=== PATIENT | male | born 1990 | race African-American/Black ===

== ENCOUNTER 2023-07-13 13:39 | Emergency (ER) | payer SELFPAY ==
[2023-07-13 13:46] VITALS: BP 122/80; PULSE 54; RESP 16; TEMP 36.9; O2SAT 98; BMI 25.6
--- NOTE | 2023-07-13 14:00 | ECG_ITS ---
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
--- NOTE | 2023-07-13 14:03 | PC.NURSE ---
EKG complete and given to the DR for review. Pt denies any symptoms at this time. Pt alert and appropriate and explained ER is full at this time. Pt verbalized understanding.
--- NOTE | 2023-07-13 14:32 | PC.NURSE ---
no distress observed
[2023-07-13 14:33] LABS: Basophils Absolute Auto 0.1 10^3/uL (0.0-0.1); Basophils Percent Auto 0.9 % (0.2-2.0); Eosinophils Absolute Auto 0.2 10^3/uL (0.0-0.7); Eosinophils Percent Auto 2.3 % (0.9-7.0); Hematocrit 41.3 % (42.0-54.0); Hemoglobin 13.8 g/dL (14.0-18.0); Immature Granulocytes Abs Auto 0.01 10^3/uL (0.00-0.03); Immature Granulocytes Pct Auto 0.1 % (0.0-0.5); Lymphocytes Absolute Auto 2.4 10^3/uL (1.2-3.8); Lymphocytes Percent Auto 34.4 % (20.5-60.0); Mean Corpuscular HGB Conc 33.4 g/dL (29.9-35.2); Mean Corpuscular Hemoglobin 31.8 pg (25.9-34.0); Mean Corpuscular Volume 95.2 fL (80.0-94.0); Mean Platelet Volume 8.6 fL (9.5-13.5); Monocytes Absolute Auto 0.7 10^3/uL (0.3-0.8); Monocytes Percent Auto 10.1 % (1.7-12.0); Neutrophils Absolute Auto 3.6 10^3/uL (1.4-6.5); Neutrophils Percent Auto 52.2 % (43.0-75.0); Platelet Count 232 10^3/uL (150-450); Red Blood Count 4.34 10^6/uL (4.70-6.10); Red Cell Distribution Width 12.7 % (11.0-15.0); White Blood Count 6.9 10^3/uL (4.0-11.0)
[2023-07-13 14:48] LABS: Alanine Aminotransferase 24 U/L (16-63); Albumin Globulin Ratio 1.3; Albumin Level 4.3 g/dL (3.4-5.0); Alkaline Phosphatase 44 U/L (46-116); Anion Gap 5.8; Aspartate Amino Transferase 21 U/L (15-37); BUN Creatinine Ratio 13.1; Bilirubin Total 0.8 mg/dL (0.2-1.0); Calcium 8.7 mg/dL (8.5-10.1); Carbon Dioxide 32.9 mmol/L (21.0-32.0); Chloride 105 mmol/L (98-107); Estimated GFR (African America >60 (>=60); Estimated GFR (Non-African Ame >60 (>=60); Globulin 3.3 g/dL; Glucose 64 mg/dL (74-106); Potassium 3.7 mmol/L (3.5-5.1); Sodium 140 mmol/L (136-145); Total Protein 7.6 g/dL (6.4-8.2); Troponin I High Sensitivity 5.5 pg/mL (4.0-76.1)
[2023-07-13 14:49] LABS: INR 0.95; Prothrombin Time 10.1 sec (9.0-11.6)
--- NOTE | 2023-07-13 14:52 | ED.CHESTPAI1 ---
HPI - Chest Pain General Chief Complaint: Chest Pain Stated Complaint: SHORTNESS OF BREATH/ CHEST PAIN Time Seen by Provider: 07/13/23 13:54 Source: patient Mode of arrival: walk-in History of Present Illness HPI narrative: patient is a 33-year-old male who presents to the emergency department with concern for chest pain that started last night. Patient states he was watching television with his when he developed sharp pain in his left chest just underneath the left pectoral muscle. He has not had any injuries or traumas to the area. He quit smoking cigarettes seven years ago. He has not had any fevers, chills, cough, congestion. He did not take any medications prior to arrival. He has not had any swelling in his legs. He has no other medical history. He denies any immediate family members with myocardial infarction under the age of fifty. He states that he had improvement of the pain after ten minutes, and after one hour it was completely gone. He states today he is having an occasional twinge in the left chest but no pain, nausea or vomiting. He states last night when the pain was significant, it felt like a muscle cramp. He denies any movements that may have precipitated a muscle cramp or muscle pull. He presents to the Emergency Room today because his was concerned that he may have had an myocardial infarction. Risk Factors Coronary artery disease risk factors: none Related Data Allergies Allergy/AdvReac Type Severity Reaction Status Date / Time No Known Drug Allergies Allergy Verified 07/13/23 13:54 Review of Systems ROS Constitutional Denies: fever or chills Ears, nose, mouth, and throat Denies: throat pain Cardiovascular Reports: chest pain; Denies: palpitations Respiratory Denies: shortness of breath or cough Gastrointestinal Denies: nausea or vomiting Musculoskeletal Denies: back pain Integumentary/Breast Denies: rash Neurological Denies: headache Hematologic/Lymphatic Denies: easy bruising Exam Narrative Exam Narrative: Gen.: Awake, alert, in no distress Head: Normocephalic, atraumatic ENT: Moist mucous membranes Respiratory: No respiratory distress, lungs clear bilaterally; no tenderness of the chest wall, no rashes noted of the chest wall Cardio: Regular rate and rhythm Gastrointestinal: Abdomen is soft, nondistended and nontender to palpation Extremities: Moves extremities equally, no pedal edema Psych: Normal mood and affect Neuro: No focal neuro deficit Skin: Warm, dry, intact Constitutional Vital Signs, click to edit/add: Last Vital Signs Temp 98.4 F 07/13/23 13:46 Pulse 54 L 07/13/23 13:46 Resp 16 07/13/23 13:46 BP 122/80 07/13/23 13:46 Pulse Ox 98 07/13/23 13:46 O2 Del Method Room Air 07/13/23 14:32 Course Vital Signs Vital signs: Vital Signs Temperature 98.4 F 07/13/23 13:46 Pulse Rate 54 L 07/13/23 13:46 Respiratory Rate 16 07/13/23 13:46 Blood Pressure 122/80 07/13/23 13:46 Pulse Oximetry 98 07/13/23 13:46 Oxygen Delivery Method Room Air 07/13/23 13:46 Temperature 98.4 F 07/13/23 13:46 Pulse Rate 54 L 07/13/23 13:46 Respiratory Rate 16 07/13/23 13:46 Blood Pressure 122/80 07/13/23 13:46 Pulse Oximetry 98 07/13/23 13:46 Oxygen Delivery Method Room Air 07/13/23 14:32 MDM - Chest Pain MDM Narrative Medical decision making narrative: patient was given aspirin as a precaution due to his complaints, he has no significant risk factors. Labs including troponin and d-dimer are unremarkable and chest x-ray shows no evidence of acute cardiopulmonary changes. Patient noted to have early repolarization on EKG with no acute changes. He is encouraged follow-up with PCP and return to the Emergency Room if symptoms change or worsen Medical Records Data Attestation: I reviewed the patient's medical records. Lab Data Attestation: I reviewed the patient's lab results. Labs: Lab Results 07/13/23 Range/Units 14:23 WBC 6.9 (4.0-11.0) 10^3/uL RBC 4.34 L (4.70-6.10) 10^6/uL Hgb 13.8 L (14.0-18.0) g/dL Hct 41.3 L (42.0-54.0) % MCV 95.2 H (80.0-94.0) fL MCH 31.8 (25.9-34.0) pg MCHC 33.4 (29.9-35.2) g/dL RDW 12.7 (11.0-15.0) % Plt Count 232 (150-450) 10^3/uL MPV 8.6 L (9.5-13.5) fL Neut % (Auto) 52.2 (43.0-75.0) % Lymph % (Auto) 34.4 (20.5-60.0) % [place] % (Auto) 10.1 (1.7-12.0) % Eos % (Auto) 2.3 (0.9-7.0) % Baso % (Auto) 0.9 (0.2-2.0) % Neut # (Auto) 3.6 (1.4-6.5) 10^3/uL Lymph # (Auto) 2.4 (1.2-3.8) 10^3/uL [place] # (Auto) 0.7 (0.3-0.8) 10^3/uL Eos # (Auto) 0.2 (0.0-0.7) 10^3/uL Baso # (Auto) 0.1 (0.0-0.1) 10^3/uL Abs Immat Gran (auto) 0.01 (0.00-0.03) 10^3/uL Imm/Tot Granulo (auto) 0.1 (0.0-0.5) % PT 10.1 (9.0-11.6) sec INR 0.95 D-Dimer 0.31 (<=0.59) mg/L FEU Sodium 140 (136-145) mmol/L Potassium 3.7 (3.5-5.1) mmol/L Chloride 105 (98-107) mmol/L Carbon Dioxide 32.9 H (21.0-32.0) mmol/L Anion Gap 5.8 BUN 14.0 (7.0-18.0) mg/dL Creatinine 1.07 (0.70-1.30) mg/dL Est GFR ( Amer) >60 (>=60) Est GFR (Non-Af Amer) >60 (>=60) BUN/Creatinine Ratio 13.1 Glucose 64 L (74-106) mg/dL Calcium 8.7 (8.5-10.1) mg/dL Total Bilirubin 0.8 (0.2-1.0) mg/dL AST 21 (15-37) U/L ALT 24 (16-63) U/L Alkaline Phosphatase 44 L (46-116) U/L Troponin I High Sens 5.5 (4.0-76.1) pg/mL Total Protein 7.6 (6.4-8.2) g/dL Albumin 4.3 (3.4-5.0) g/dL Globulin 3.3 g/dL Albumin/Globulin Ratio 1.3 Imaging Data Chest x-ray: Attestation: I have reviewed the pertinent imaging results. Radiologist's impression: Procedure: XR chest 1V PROCEDURE: XR chest 1V DATE: 07/13/2023 2:45 PM CDT COMPARISONS: None. CLINICAL INDICATION: 33 years Male Chest pain FINDINGS: The cardiomediastinal silhouette and pulmonary vasculature are within normal limits. The lungs are clear. There is no evidence of pleural effusion or pneumothorax. IMPRESSION: Chest radiograph is within normal limits. Electronically authenticated by: CODY GARCIA Date: 07/13/2023 16:02 ECG Data Attestation: I personally reviewed and interpreted this ECG as follows: (normal sinus rhythm at a rate of fifty-two, early repolarization noted globally with no reciprocal changes or ST depression. EKG reviewed by attending physician) Heart Score History: Slightly/Non-Suspicious ECG: NS Repolarization Age: <45 years Risk Factors: No Risk Factors Troponin: <Normal Limit Total Heart Score Recommendations & Risks:: 1 Discharge Plan Discharge Chief Complaint: Chest Pain Clinical Impression: Atypical chest pain Time of Disposition Decision: 16:15 Condition: Good Instructions: Noncardiac Chest Pain (ED) Stand Alone Forms: Portal Instructions Referrals: Physician,Non-Staff, MD [Primary Care Provider] - 1 week
[2023-07-13 14:53] LABS: D Dimer 0.31 mg/L FEU (<=0.59)
--- NOTE | 2023-07-13 15:18 | XR_ITS ---
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 CLINICAL INDICATION: 33 years Male Chest pain FINDINGS: The cardiomediastinal silhouette and pulmonary vasculature are within normal limits. The lungs are clear. There is no evidence of pleural effusion or pneumothorax. XR/XR chest 1V IMPRESSION: Chest radiograph is within normal limits. Electronically authenticated by: CODY GARCIA Date: 07/13/2023 16:02
[2023-07-13] MEDS: ASPIRIN 81 MG TAB.CHEW 162 MG PO (15:20)
== END 2023-07-13 16:28 | disposition home or self-care (01) ==
PROVIDERS: Physician Assistant; Emergency Provider Emergency Medicine
DX: R07.89 Other chest pain (principal)
CPT/HCPCS: 36415; 71045; 80053; 84484; 85025; 85378; 85610; 93005; 99285